=== PATIENT | female | born 1980 | race American Indian/Alaskan Native ===

== ENCOUNTER 2017-08-19 07:19 | Emergency (ER) | payer SELFPAY ==
[2017-08-19 08:08] VITALS: BP 102/62
== END 2017-08-19 08:10 | disposition left against medical advice (07) ==
LOC: ED 07:19
DX: R11.2 Nausea with vomiting, unspecified (principal); Z53.21 Procedure and treatment not carried out due to patient leaving prior to being seen by health care provider